=== PATIENT | male | born 1990 | race Caucasian/White ===

== ENCOUNTER 2020-10-10 09:57 | Emergency (ER) | payer SELFPAY ==
[2020-10-10 10:03] VITALS: BP 126/86
[2020-10-10] MEDS ORDERED: IBUPROFEN 800 MG TABLET PO ONE (10:27)
--- NOTE | 2020-10-10 10:31 | ER Document Report ---
HPI - HPI Time Seen by Provider: 10/10/20 10:20 Pain Level: 2 Notes: 29-year-old male presents to the emergency room today for evaluation of his left foot and ankle after he fell last night while he was taking out the garbage. Reports pain is 4 out of 5, throbbing achy. Has not tried any Tylenol or ibuprofen. Has not tried any ice or elevation. Denies any head trauma or change in level consciousness. Unable to bear full weight on the left lower extremity. Denies any numbness or tingling to left lower extremity. Denies any prior history of left ankle sprains or fractures. Denies any fevers chills, nausea, vomiting, diarrhea, shortness of breath, chest pain, bowel or bladder dysfunction, saddle anesthesia - CONSTITUTIONAL Constitutional: DENIES: Fever, Chills - EENT EENT: DENIES: Sore Throat, Ear Pain, Eye problems - NEURO Neurology: DENIES: Headache, Weakness, Vision blurred - CARDIOVASCULAR Cardiovascular: DENIES: Chest pain - RESPIRATORY Respiratory: DENIES: Trouble Breathing, Coughing - GASTROINTESTINAL Gastrointestinal: DENIES: Abdominal Pain, Black / Bloody Stools - URINARY Urinary: DENIES: Dysuria - MUSCULOSKELETAL Musculoskeletal: REPORTS: Extremity pain - left ankle - DERM Skin Color: Normal Past Medical History - General Information source: Patient - Social History Smoking Status: Former Smoker Chew tobacco use (# tins/day): No Frequency of alcohol use: None Family History: Reviewed & Not Pertinent Patient has homicidal ideation: No Vertical Provider Document - CONSTITUTIONAL Agree With Documented VS: Yes Exam Limitations: No Limitations General Appearance: WD/WN Notes: MEDICATIONS: I agree with the patient medications as charted by the RN. ALLERGIES: I agree with the allergies as charted by the RN. PAST MEDICAL HISTORY/PAST SURGICAL HISTORY: Reviewed and agree as charted by RN. SOCIAL HISTORY: Reviewed and agree as charted by RN. FAMILY HISTORY: No significant familial comorbid conditions directly related to patient complaint EXAM: Reviewed vital signs as charted by RN. PHYSICAL EXAMINATION:reviewed vital signs by RN GENERAL: Well-appearing, well-nourished and in no acute distress. HEAD: Atraumatic, normocephalic. EYES: Pupils equal round and reactive to light, extraocular movements intact, sclera anicteric, conjunctiva are normal. ENT: Nares patent, oropharynx clear without exudates. Moist mucous membranes. NECK: Normal range of motion, supple without lymphadenopathy LUNGS: Breath sounds clear to auscultation bilaterally and equal. No wheezes rales or rhonchi. HEART: Regular rate and rhythm without murmurs ABDOMEN: Soft, nontender, nondistended abdomen. No guarding, no rebound. No masses appreciated. Musculoskeletal: Normal range of motion, no pitting or edema. No cyanosis. left foot with STS and tenderness on 5th metatarsal bones with palpation as well on left lateral aspects of malleolus. unable to palpate a step-off bilaterally. No open lesions. squeeze test negative. dtr +2 BLE. Limited APROM. distal pulses + 2 in BUE. full motor and sensory function. No vascular compromise. Ankle exam within normal limits. No noted lacerations, lesions, ulcers or break in the skin. NEUROLOGICAL: Cranial nerves grossly intact. Normal speech, normal gait. Normal sensory, motor exams PSYCH: Normal mood, normal affect. SKIN: Warm, Dry, normal turgor, no rashes or lesions noted. Course - Re-evaluation Re-evalutation: 10/10/20 10:30 Afebrile vital stable no distress. Nurses notes reviewed. 800 mg of ibuprofen given for pain control. X-rays of left ankle show soft tissue swelling but no fracture, foreign body or dislocation and foot shows no fracture, foreign body or dislocation. Advised to follow RICE therapy. Crutches and Aircast given. Advised to follow-up with credit collection specialist within the next 24 to 48 hours. Take naproxen as needed for pain alternate with Tylenol. After today apply heat 20 minutes on 20 minutes off several times a day. Keep elevated above level of heart. After performing a Medical Screening Examination, I estimate there is LOW risk for OPEN FRACTURE, COMPARTMENT SYNDROME, DEEP VENOUS THROMBOSIS, ACUTE TENDON RUPTURE, or NEUROVASCULAR INJURY thus I consider the discharge disposition reasonable. I have reevaluated this patient multiple times and no significant life threatening changes are noted. The patient and I have discussed the diagnosis and risks, and we agree with discharging home to closely follow-up with their primary doctor or the referral orthopedist with the understanding that symptoms and presentations can change. We also discussed returning to the Emergency Department immediately if new or worsening symptoms occur. We have discussed the symptoms which are most concerning (e.g., changing or worsening pain, numbness, weakness) that necessitate immediate return 10/10/20 11:22 - Vital Signs Vital signs: Temp Pulse Resp BP Pulse Ox 97.8 F 95 16 126/86 H 100 10/10/20 10:02 10/10/20 10:02 10/10/20 10:02 10/10/20 10:02 10/10/20 10:02 Discharge - Discharge Clinical Impression: Left ankle sprain, Sprain of left foot Condition: Stable Disposition: HOME, SELF-CARE Instructions: Lisandro Wrap ([facility]), Use of Crutches ([facility]), Ice & Elevation ([facility]), Sprain ([facility]), Sprained Ankle ([facility]) Additional Instructions: Your x-ray today was negative for any acute fracture dislocations or foreign bodies. There is soft tissue swelling seen on your left ankle. It is advised that you follow-up with the credit collection specialist as well as your primary care provider within the next 3-5 days. You can alternate between Tylenol and naproxen as directed. Please wear Aircast and use crutches as directed. Apply ice 20 minutes on 20 minutes off and then switch over to heat after today in the same fashion. Keep elevated above level of heart. Return immediately for any new or worsening symptoms. Follow up with primary care provider, call tomorrow to make followup appointment. Prescriptions: Naproxen 500 mg PO BID #10 tablet Forms: Return to Work Referrals: SUMANTH DUDLEY MD [ACTIVE STAFF] - Follow up as needed BRET VARGAS DO [ACTIVE STAFF] - Follow up as needed
--- NOTE | 2020-10-10 11:13 | RADIOLOGY REPORT (SQ) ---
EXAM DESCRIPTION: ANKLE LEFT COMPLETE IMAGES COMPLETED DATE/TIME: 10/10/2020 11:04 am REASON FOR STUDY: L ankle/foot pain s/p fall x1d ago COMPARISON: None. NUMBER OF VIEWS: Three views. TECHNIQUE: AP, lateral, and oblique radiographic images acquired of the left ankle. LIMITATIONS: None. FINDINGS: MINERALIZATION: Normal. BONES: No acute fracture or dislocation. JOINTS: Slight degenerative changes at the ankle joint. SOFT TISSUES: A 7-8 mm ossific density in or near the region of the posterior ankle joint may be rel ated prior remote injury. OTHER: No other significant finding. IMPRESSION: 1. No acute osseous findings. TECHNICAL DOCUMENTATION: JOB ID: [id number] 2010 [employer]- All Rights Reserved Reading location - IP/workstation name: [email or web address]
--- NOTE | 2020-10-10 11:16 | RADIOLOGY REPORT (SQ) ---
EXAM DESCRIPTION: FOOT LEFT COMPLETE IMAGES COMPLETED DATE/TIME: 10/10/2020 11:04 am REASON FOR STUDY: L ankle/foot pain s/p fall x1d ago COMPARISON: None. NUMBER OF VIEWS: Three views. TECHNIQUE: AP, lateral and oblique radiographic images acquired of the left foot. LIMITATIONS: None. FINDINGS: MINERALIZATION: Normal. BONES: No acute fracture or dislocation. Small bone island within the navicular bone. JOINTS: Hallux valgus deformity and associated bunion at the first metatarsophalangeal joint. SOFT TISSUES: Moderate to marked soft tissue swelling lateral fifth metatarsal bone. OTHER: No other significant finding. IMPRESSION: 1. Marked soft tissue swelling lateral aspect of the left foot. 2. No acute osseous findings. 3. Hallux valgus deformity and associated bunion at the first metatarsophalangeal joint. TECHNICAL DOCUMENTATION: JOB ID: [id number] 2010 [employer]- All Rights Reserved Reading location - IP/workstation name: [email or web address]
== END 2020-10-10 11:40 | disposition home or self-care (01) ==
LOC: ER 09:57
DX: S93.402A Sprain of unspecified ligament of left ankle, initial encounter (principal); S93.602A Unspecified sprain of left foot, initial encounter; M25.572 Pain in left ankle and joints of left foot; M79.672 Pain in left foot; W19.XXXA Unspecified fall, initial encounter; Y93.89 Activity, other specified; Y92.007 Garden or yard of unspecified non-institutional (private) residence as the place of occurrence of the external cause; Z87.891 Personal history of nicotine dependence
CPT/HCPCS: 99283